=== PATIENT | female | born 2000 | race Caucasian/White ===

== ENCOUNTER → 2023-07-08 | Outpatient (CLI) | payer MEDICAID ==
--- NOTE | 2023-07-08 15:37 | Diagnostic Imaging Report ---
PROCEDURE: US right lower extremity venous. TECHNIQUE: Multiple real-time grayscale images were obtained over the right lower extremity in various projections. Additional spectral analysis and color Doppler duplex images were also obtained. INDICATION: Pain in the right leg. COMPARISON: Non available. FINDINGS: The right common femoral, femoral and popliteal veins are patent by color doppler imaging and without DVT. Visualized proximal aspects of the greater saphenous, deep femoral, posterior tibial and peroneal veins are also patent. All of the evaluated deep venous structures demonstrate normal compressibility and waveform augmentation where applicable. IMPRESSION: No right lower extremity deep venous thrombosis (DVT). Dictated by: Dictated on workstation # [id number]
== END ==
LOC: RAD 14:17
PROVIDERS: ATTEND Obstetrics & Gynecology
DX: M79.604 Pain in right leg (principal)

== ENCOUNTER → 2023-09-04 | Outpatient (CLI) | payer MEDICAID ==
--- NOTE | 2023-09-04 15:22 | Diagnostic Imaging Report ---
INDICATION: survey. TECHNIQUE: Multiple real-time grayscale images were obtained over the gravid uterus. COMPARISON: None FINDINGS: There is a single live fetus in a breech presentation. heart rate was recorded at 149 bpm. The placenta is posterior. No previa is detected. The amniotic fluid volume is 12.1 cm. The cervical length is 4.1 cm. kidneys, bladder and stomach are unremarkable. brain is unremarkable. There is a four-chamber heart. There is a three-vessel cord with normal insertion. spine is unremarkable. Maternal adnexa was not evaluated. Biometrical measurements are as follows: Biparietal 4.21 cm, age 18 weeks 6 days. Head circumference 16.84 cm, age 19 weeks 4 days. Abdominal circumference 14.56 cm, age 20 weeks 0 days. Femur length 3.05 cm, age 19 weeks 4 days. Sonographic estimate age: 19 weeks 4 days. Sonographic estimated date of delivery: 01/25/2024. Estimated Weight: 303 gm (+/- 44 gm). LMP percentile: 32%. heart rate: 149 beats per minute. number: 1 of 1. IMPRESSION: Single live IUP 19 weeks 4 days gestational age. Estimated date of confinement sonographically is 01/25/2024. Dictated by: Dictated on workstation # [id number]
== END ==
LOC: RAD 10:08
PROVIDERS: ATTEND Obstetrics & Gynecology
DX: Z36.89 Encounter for other specified antenatal screening (principal); Z3A.19 19 weeks gestation of pregnancy
CPT/HCPCS: 76805

== ENCOUNTER 2023-10-07 12:57 | Emergency (ER) | payer MEDICAID ==
[~2023-10-07] VITALS: Ht 167.7 cm; Wt 68.9 kg
[2023-10-07] MEDS ORDERED: NS IV 1000 ML 1,000 ML IV STA (13:33)
[2023-10-07 13:41] LABS: ALBUMIN 3.5 GM/DL (3.2-4.5); BASOPHILS # (AUTO) 0.1 10^3/uL (0.0-0.1); BASOPHILS % (AUTO) 1 % (0-10); EOSINOPHILS # (AUTO) 0.1 10^3/uL (0.0-0.3); EOSINOPHILS % (AUTO) 1 % (0-10); HEMATOCRIT 34 % (35-52); LYMPHOCYTES # (AUTO) 1.4 10^3/uL (1.0-4.0); LYMPHOCYTES % (AUTO) 14 % (12-44); MEAN CORPUSCULAR HEMOGLOBIN 30 pg (25-34); MEAN CORPUSCULAR HGB CONC 33 g/dL (32-36); MEAN CORPUSCULAR VOLUME 90 fL (80-99); MEAN PLATELET VOLUME 10.5 fL (9.0-12.2); MONOCYTES # (AUTO) 0.5 10^3/uL (0.0-1.0); MONOCYTES % (AUTO) 5 % (0-12); NEUTROPHILS # (AUTO) 7.7 10^3/uL (1.8-7.8); NEUTROPHILS % (AUTO) 78 % (42-75); PLATELET COUNT 241 10^3/uL (130-400); WHITE BLOOD COUNT 9.9 10^3/uL (4.3-11.0)
[2023-10-07 13:42] LABS: POTASSIUM 3.4 MMOL/L (3.6-5.0)
[2023-10-07 13:43] LABS: CALCIUM 8.4 MG/DL (8.5-10.1)
[2023-10-07 13:46] LABS: BILIRUBIN,TOTAL 0.6 MG/DL (0.1-1.0)
[2023-10-07 13:48] LABS: CREATININE SERUM 0.65 MG/DL (0.60-1.30)
[2023-10-07 13:51] LABS: MAGNESIUM 1.9 MG/DL (1.6-2.4)
[2023-10-07 14:03] LABS: CLARITY,URINE CLOUDY; COLOR,URINE YELLOW; PH,URINE 8.5 (5-9)
[2023-10-07 14:04] LABS: BACTERIA,URINE MODERATE /HPF; BILIRUBIN,URINE NEGATIVE (NEGATIVE); GLUCOSE, URINE (UA) NEGATIVE (NEGATIVE); KETONES,URINE NEGATIVE (NEGATIVE); LEUKOCYTE ESTERASE ,URINE 2+ (NEGATIVE); NITRITE,URINE NEGATIVE (NEGATIVE); PROTEIN,URINE NEGATIVE (NEGATIVE)
--- NOTE | 2023-10-07 14:06 | ED General ---
General Chief Complaint: Dizziness/Syncope Stated Complaint: 24 WEEKS | SPOTTY VISION | PASSING OUT Nursing Triage Note: PT AMB TO RM 9 WITH CC OF DIZZINESS, SPOTTED VISION, NAUSEA, AND FEELING LIKE SHE IS GOING TO PASS OUT. PT IS 24 WEEKS . HX OF ANEMIA. Source of Information: Patient Exam Limitations: No Limitations History of Present Illness Date Seen by Provider: Oct 07, 2023 Time Seen by Provider: 13:25 Initial Comments Here with report of dizziness and swatted her blurry vision that started this morning. Patient is approximately 24 weeks . She has had uncomplicated so far. Does have some vaginal discharge that seems to be physiologic and has been persistent throughout . She was started on antibiotic last week for the discharge their direction of Dr. 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 She denies chest pain, breathing problems, sore throat, runny nose, cough or other viral or infective symptoms. Denies diarrhea. She did have a bout of dizziness during her last at the end of and they thought that might be related to some anemia. She was not otherwise found to be anemic at other visits. She did try resting and drinking plenty of water and that did not change the symptoms. She still reports dizziness with eyes open or closed as well as sitting up or lying down. Timing/Duration: 4-6 Hours Severity: Moderate Associated Systoms: No Cough, No Fever/Chills; Nausea/Vomiting; No Shortness of Air, No Syncope; Weakness Allergies and Home Medications Allergies Coded Allergies: No Known Drug Allergies (Unverified , 10/07/23) Patient Home Medication List Home Medication List Reviewed: Yes Review of Systems Review of Systems Constitutional: No fever; weakness EENTM: No nose congestion, No throat pain Respiratory: No cough, No short of breath Cardiovascular: No chest pain, No palpitations Gastrointestinal: No nausea, No vomiting Genitourinary: see HPI Expected Date of Delivery: Jan 23, 2024 Musculoskeletal: no symptoms reported Skin: see HPI Psychiatric/Neurological: See HPI Past Zowgmyx-Khfwww-Pxnfph Hx Patient Social History Tobacco Use?: No Substance use?: No Alcohol Use?: No Past Medical History Surgeries: No Respiratory: No Cardiac: No Neurological: No Expected Date of Delivery: Jan 23, 2024 Gastrointestinal: No Musculoskeletal: No Family Medical History Reviewed Nursing Family Hx Physical Exam Vital Signs Vital Signs - First Documented 10/07/23 13:05 Temp 36.6 Pulse 92 B/P (MAP) 124/77 (93) Pulse Ox 100 O2 Delivery Room Air Capillary Refill : Height, Weight, BMI Height: '" Weight: lbs. oz. kg; 24.00 BMI Method: General Appearance: No Apparent Distress, WD/WN HEENT: PERRL/EOMI, TMs Normal, Pharynx Normal Neck: Non Tender, Supple Respiratory: Lungs Clear, Normal Breath Sounds Cardiovascular: Regular Rate, Rhythm, No Murmur Gastrointestinal: Non Tender, Soft, Other Back: Normal Inspection, No CVA Tenderness, No Vertebral Tenderness Extremity: Normal Range of Motion, Non Tender Neurologic/Psychiatric: Alert, Oriented x3 Skin: Normal Color, Warm/Dry Progress/Results/Core Measures Suspected Sepsis SIRS Temperature: Pulse: 92 Respiratory Rate: Laboratory Tests 10/07/23 13:15: White Blood Count 9.9 Blood Pressure 124 /77 Mean: 93 Laboratory Tests 10/07/23 13:15: Creatinine 0.65, Platelet Count 241, Total Bilirubin 0.6 Results/Orders Lab Results Laboratory Tests Test 10/07/23 13:15 10/07/23 13:44 Range/Units White Blood Count 9.9 4.3-11.0 10^3/uL Red Blood Count 3.73 L 3.80-5.11 10^6/uL Hemoglobin 11.0 L 11.5-16.0 g/dL Hematocrit 34 L 35-52 % Mean Corpuscular Volume 90 80-99 fL Mean Corpuscular Hemoglobin 30 25-34 pg Mean Corpuscular Hemoglobin Concent 33 32-36 g/dL Red Cell Distribution Width 13.1 10.0-14.5 % Platelet Count 241 130-400 10^3/uL Mean Platelet Volume 10.5 9.0-12.2 fL Immature Granulocyte % (Auto) 2 % Neutrophils (%) (Auto) 78 H 42-75 % Lymphocytes (%) (Auto) 14 12-44 % Monocytes (%) (Auto) 5 0-12 % Eosinophils (%) (Auto) 1 0-10 % Basophils (%) (Auto) 1 0-10 % Neutrophils # (Auto) 7.7 1.8-7.8 10^3/uL Lymphocytes # (Auto) 1.4 1.0-4.0 10^3/uL Monocytes # (Auto) 0.5 0.0-1.0 10^3/uL Eosinophils # (Auto) 0.1 0.0-0.3 10^3/uL Basophils # (Auto) 0.1 0.0-0.1 10^3/uL Immature Granulocyte # (Auto) 0.2 H 0.0-0.1 10^3/uL Sodium Level 136 135-145 MMOL/L Potassium Level 3.4 L 3.6-5.0 MMOL/L Chloride Level 107 98-107 MMOL/L Carbon Dioxide Level 21 21-32 MMOL/L Anion Gap 8 5-14 MMOL/L Blood Urea Nitrogen 9 7-18 MG/DL Creatinine 0.65 0.60-1.30 MG/DL Estimat Glomerular Filtration Rate 126 BUN/Creatinine Ratio 14 Glucose Level 93 70-105 MG/DL Calcium Level 8.4 L 8.5-10.1 MG/DL Corrected Calcium 8.8 8.5-10.1 MG/DL Magnesium Level 1.9 1.6-2.4 MG/DL Total Bilirubin 0.6 0.1-1.0 MG/DL Aspartate Amino Transf (AST/SGOT) 13 5-34 U/L Alanine Aminotransferase (ALT/SGPT) 6 0-55 U/L Alkaline Phosphatase 55 40-136 U/L C-Reactive Protein High Sensitivity 0.24 0.00-0.50 MG/DL Total Protein 7.0 6.4-8.2 GM/DL Albumin 3.5 3.2-4.5 GM/DL Thyroid Stimulating Hormone (TSH) 1.98 0.35-4.94 UIU/ML Urine Color YELLOW Urine Clarity CLOUDY Urine pH 8.5 5-9 Urine Specific [place] 1.020 1.016-1.022 Urine Protein NEGATIVE NEGATIVE Urine Glucose (UA) NEGATIVE NEGATIVE Urine Ketones NEGATIVE NEGATIVE Urine Nitrite NEGATIVE NEGATIVE Urine Bilirubin NEGATIVE NEGATIVE Urine Urobilinogen 0.2 < = 1.0 MG/DL Urine Leukocyte Esterase 2+ H NEGATIVE Urine RBC (Auto) NEGATIVE NEGATIVE Urine RBC RARE /HPF Urine WBC 10-25 H /HPF Urine Squamous Epithelial Cells 10-25 H /HPF Urine Crystals NONE /LPF Urine Bacteria MODERATE H /HPF Urine Casts NONE /LPF Urine Mucus NEGATIVE /LPF Urine Culture Indicated YES My Orders Orders - SIMONE PATEL MD Ekg Tracing (10/07/23 13:33) Monitor-Rhythm Ecg Trace Only (10/07/23 13:33) Cbc And Automated Diff (10/07/23 13:33) Comprehensive Metabolic Panel (10/07/23 13:33) Hs C Reactive Protein (10/07/23 13:33) Magnesium (10/07/23 13:33) Thyroid Stimulating Hormone (10/07/23 13:33) Ua Culture If Indicated (10/07/23 13:33) Ns Iv 1000 Ml (Ns Iv 1000 Ml) (10/07/23 13:33) Ed Iv/Invasive Line Start (10/07/23 13:33) Urine Culture (10/07/23 13:44) Vital Signs/I&O 10/07/23 13:05 Temp 36.6 Pulse 92 B/P (MAP) 124/77 (93) Pulse Ox 100 O2 Delivery Room Air Capillary Refill : Blood Pressure Mean: 93 Progress Note : Progress Note Seen and evaluated. IV, labs including CBC, CMP, UA, magnesium and thyroid studies ordered. Normal saline 1 L bolus and EKG ordered. Patient has gravid uterus and states that she is still feeling baby move so she is not concerned about that. Monitor patient. Differential diagnosis includes dehydration, electrolyte abnormality, UTI 1523: Labs reviewed and CBC shows slight decrease in hemoglobin but otherwise no significant abnormality. CMP is grossly normal. UA does show 15-25 whites as well as 15-25 squames. I did discuss the case with Dr. 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 We will go ahead and initiate cephalexin outpatient. Patient is currently under therapy for yeast infection. Patient is doing much better now and her dizziness and vision spots are gone. She appears much more comfortable. I did discuss all of this with her and her and both are comfortable with going home. Discharged home with return precautions. Patient and family verbalized understanding instructions and agreement with plan. ECG Initial ECG Impression Date: Oct 07, 2023 Initial ECG Impression Time: 13:48 Initial ECG Rate: 77 Initial ECG Rhythm: Normal Sinus Initial ECG Impression: Normal Initial ECG Comparisson: No Previous ECG Available Comment Sinus rhythm with normal axis. No evidence of ST elevation [place]. Interpreted by me. Departure Impression Primary Impression: Dizziness Additional Impression: UTI (urinary tract infection) Qualified Codes: N30.00 - Acute cystitis without hematuria Disposition: HOME, SELF-CARE Condition: Improved Departure-Patient Inst. Decision time for Depature: 15:25 Referrals: DENY ARCE DO (PCP/Family) Primary Care Physician FRANKLIN ROBERTS DO Patient Instructions: Dizziness, Adult ED, Urinary tract infections in adults Add. Discharge Instructions: All discharge instructions reviewed with patient and/or family. Voiced understanding. Drink plenty of fluids and try to eat a normal diet. Follow-up with Dr. Roberts for recheck and further evaluation. Take medications as directed. Return for worse pain, fever, vomiting, weakness, breathing problems or other concerns as needed. Scripts Cephalexin (Cephalexin) 500 Mg Capsule 500 MG PO BID for 5 Days, #10 CAP 0 Refills Prov: SIMONE PATEL MD 10/07/23 SIMONE PATEL MD Oct 07, 2023 14:06
[2023-10-07 14:08] LABS: RBC,URINE RARE /HPF
[2023-10-07] MEDS ORDERED: CEPH500C PO (15:24)
[2023-10-07 15:30] VITALS: BP 100/69
== END 2023-10-07 15:35 | disposition home or self-care (01) ==
LOC: EDUNIT# 12:57 → ER 12:59
DX: O23.42 Unspecified infection of urinary tract in pregnancy, second trimester (principal); N39.0 Urinary tract infection, site not specified; O26.892 Other specified pregnancy related conditions, second trimester; R42 Dizziness and giddiness; Z3A.24 24 weeks gestation of pregnancy
CPT/HCPCS: 36415; 80053; 81000; 83735; 84443; 85025; 86141; 87088; 93005; 93041

== ENCOUNTER 2023-10-11 15:13 | Outpatient (CLI) | payer MEDICAID ==
[~2023-10-11] VITALS: Ht 165.1 cm; Wt 69.5 kg
[~2023-10-11 15:13] MED LIST: CEPH500C PO
[2023-10-11 15:28] VITALS: BP 128/69
[2023-10-11] MEDS ORDERED: PNV-9 PO (15:40)
[2023-10-11 16:05] LABS: CLARITY,URINE CLEAR; COLOR,URINE YELLOW; GLUCOSE, URINE (UA) NEGATIVE (NEGATIVE); PROTEIN,URINE 1+ (NEGATIVE)
[2023-10-11 16:06] LABS: AMORPHOUS SEDIMENT,UR FEW AMOR URATES /LPF; BACTERIA,URINE FEW /HPF; BILIRUBIN,URINE NEGATIVE (NEGATIVE); KETONES,URINE NEGATIVE (NEGATIVE); LEUKOCYTE ESTERASE ,URINE TRACE (NEGATIVE); NITRITE,URINE NEGATIVE (NEGATIVE); RBC,URINE RARE /HPF
[2023-10-11] MEDS ORDERED: ONDA4TAB11 PO (16:28)
--- NOTE | 2023-10-12 09:41 | OB Triage Report ---
Standard Progress Note Progress Notes/Assess & Plan Date Seen by a Provider: Oct 11, 2023 Time Seen by a Provider: 19:00 Expected Date of Delivery: Jan 23, 2024 Gestational Age in Weeks: 25 Gestational Age in Days: 1 LMP/PATEL Comment: As above Progress/Assessment & Plan L&D Triage Note: S: Patient is a at 25 1/7 weeks presents to L&D with 5 day hx of nausea, back pain, dizziness and ringing in ears, seen in ED recently for same. Patient on Rx Keflex for UTI. No respiratory complaints, no myalgias, no fevers, no emesis, no SOB. O: VSS/AF Patient saturating 98% on RA per RN, FHTs in normal range, no evidence of contractions, therefore no cervical exam performed UA unremarkable A/P: GI viral syndrome. Patient given several options: 1) Home with reassurance 2) IV fluids and IV anti-emetics 3) Outpatient Rx for nausea (option chosen by patient) Rx called in by RN on my behalf for Zofran 4 mg, #20: 1 p.o. q6h prn nausea (1 Refill) Follow up routine OB, sooner prn. Final Diagnosis GI Viral Syndrome Third Trimester 25 weeks Not in labor COOPER ESCOBAR DO Oct 12, 2023 09:41
== END 2023-10-11 16:48 ==
LOC: WSo 15:13 → LDRP 15:14 → WSo 16:48
PROVIDERS: ATTEND Obstetrics & Gynecology
DX: O99.891 Other specified diseases and conditions complicating pregnancy (principal); R11.0 Nausea; M54.9 Dorsalgia, unspecified; H93.19 Tinnitus, unspecified ear; Z3A.25 25 weeks gestation of pregnancy
CPT/HCPCS: 81000; 87088

== ENCOUNTER 2023-10-22 10:19 | Emergency (ER) | payer MEDICAID ==
[~2023-10-22] VITALS: Ht 167.7 cm; Wt 70.7 kg
[~2023-10-22 10:19] MED LIST changes: +ONDA4TAB11 PO; +PNV-9 PO
[2023-10-22] MEDS ORDERED: NS IV 1000 ML 1,000 ML IV STA (10:48)
[2023-10-22 11:14] LABS: BASOPHILS % (AUTO) 0 % (0-10); EOSINOPHILS % (AUTO) 0 % (0-10); HEMATOCRIT 33 % (35-52); HEMOGLOBIN 10.6 g/dL (11.5-16.0); LYMPHOCYTES # (AUTO) 1.6 10^3/uL (1.0-4.0); LYMPHOCYTES % (AUTO) 16 % (12-44); MEAN CORPUSCULAR HEMOGLOBIN 29 pg (25-34); MEAN CORPUSCULAR HGB CONC 32 g/dL (32-36); MEAN CORPUSCULAR VOLUME 90 fL (80-99); MEAN PLATELET VOLUME 10.5 fL (9.0-12.2); MONOCYTES # (AUTO) 0.5 10^3/uL (0.0-1.0); MONOCYTES % (AUTO) 5 % (0-12); NEUTROPHILS # (AUTO) 7.6 10^3/uL (1.8-7.8); NEUTROPHILS % (AUTO) 77 % (42-75); PLATELET COUNT 214 10^3/uL (130-400)
[2023-10-22 11:22] LABS: ALBUMIN 3.7 GM/DL (3.2-4.5); POTASSIUM 3.8 MMOL/L (3.6-5.0)
--- NOTE | 2023-10-22 11:23 | ED General ---
General Chief Complaint: Dizziness/Syncope Stated Complaint: PASSING OUT | DIZZY | 26 WEEKS PREG Nursing Triage Note: PT AMB TO RM 5 WITH COMPLAINT DIZZY SPELLS AND PASSING OUT. STATES SHE PASSED OUT TODAY WHILE SITTING IN A CHAIR. PT IS [address] ARELLANO. COMPLAINS OF THROBBING HEADACHE. Source of Information: Patient Exam Limitations: No Limitations History of Present Illness Date Seen by Provider: Oct 22, 2023 Time Seen by Provider: 10:49 Initial Comments Here with report of dizzy episode today and passed out. States that she was s itting in a chair when this happened. She does report eating breakfast this morning including a waffle with peanut butter and a banana. She has had multiple episodes of this dizziness throughout the and even had it before . This seems to be worse now. This is her third visit since 10/07/2023 for the same. She follows with Dr. Arellano. She does have anxiety related to the concerns. Denies vaginal bleeding. She has physiological discharge of that is a little less currently. Denies injury, vomiting or diarrhea currently. Denies dysuria. is with her at bedside. He was concerned about her diet and also concerns of low blood sugar. This is her second and she is approximately 26 weeks gestation currently. Timing/Duration: Changing Over Time, Other (weeks) Severity: Mild, Moderate Associated Systoms: No Chest Pain, No Cough, No Fever/Chills, No Nausea/Vomiting, No Shortness of Air; Syncope, Other (Dizziness) Allergies and Home Medications Allergies Coded Allergies: tree nut (Verified Allergy, Unknown, 10/11/23) Patient Home Medication List Home Medication List Reviewed: Yes Cephalexin (Cephalexin) 500 Mg Capsule, 500 MG PO BID Prescribed by: SIMONE PATEL on 10/07/23 1524 Ondansetron (Ondansetron Odt) 4 Mg Tab.rapdis, 4 MG PO Q6H PRN for NAUSEA/VOMIT ING-1ST LINE Prescribed by: ELIZABETH TREVIZO on 10/11/23 1633 Pnv 119/Iron Fum/Folic Acid ( 19 Tablet) 29 Mg Iron-1 Mg Tablet, 1 EACH PO DAILY, (Reported) Entered as Reported by: ELIZABETH TREVIZO on 10/11/23 1540 Review of Systems Review of Systems Constitutional: see HPI; No chills; dizziness; No fever EENTM: other (Occasional numbness to the right side of face and decreased hearing from right ear. That is not currently happening.) Respiratory: No cough, No short of breath Cardiovascular: No chest pain, No palpitations, No syncope Gastrointestinal: No abdominal pain, No nausea, No vomiting Genitourinary: no symptoms reported : Yes Musculoskeletal: no symptoms reported Psychiatric/Neurological: See HPI Past Fsyoopi-Tadwgr-Zgqrel Hx Patient Social History Tobacco Use?: No Use of E-Cig and/or Vaping dev: No Substance use?: No Alcohol Use?: No Pt feels they are or have been: No Past Medical History Surgeries: No Respiratory: No Cardiac: No Neurological: No : Yes Expected Date of Delivery: Jan 25, 2024 Gastrointestinal: No Musculoskeletal: No Family Medical History Reviewed Nursing Family Hx Physical Exam Vital Signs Vital Signs - First Documented 10/22/23 10:25 Temp 36.6 Pulse 89 Resp 20 B/P (MAP) 112/80 (91) Pulse Ox 100 O2 Delivery Room Air Capillary Refill : Less Than 3 Seconds Height, Weight, BMI Height: '" Weight: lbs. oz. kg; 25.00 BMI Method: General Appearance: Anxious, Other (Tearful but answers questions appropriately and is in otherwise no distress.) HEENT: PERRL/EOMI Neck: Non Tender, Supple Respiratory: Lungs Clear, Normal Breath Sounds Cardiovascular: Regular Rate, Rhythm, No Murmur Gastrointestinal: Non Tender, Soft Neurologic/Psychiatric: Alert, Oriented x3 Skin: Normal Color, Warm/Dry Progress/Results/Core Measures Suspected Sepsis SIRS Temperature: Pulse: 89 Respiratory Rate: 20 Laboratory Tests 10/22/23 11:08: White Blood Count 10.0 Blood Pressure 112 /80 Mean: 91 Laboratory Tests 10/22/23 11:08: Creatinine 0.66, Platelet Count 214, Total Bilirubin 0.5 Results/Orders Lab Results Laboratory Tests Test 10/22/23 10:47 10/22/23 10:48 10/22/23 11:08 Range/Units Glucometer 77 70-110 MG/DL Urine Color YELLOW Urine Clarity CLEAR Urine pH 7.0 5-9 Urine Specific [place] 1.025 H 1.016-1.022 Urine Protein NEGATIVE NEGATIVE Urine Glucose (UA) NEGATIVE NEGATIVE Urine Ketones NEGATIVE NEGATIVE Urine Nitrite NEGATIVE NEGATIVE Urine Bilirubin NEGATIVE NEGATIVE Urine Urobilinogen 0.2 < = 1.0 MG/DL Urine Leukocyte Esterase TRACE H NEGATIVE Urine RBC (Auto) NEGATIVE NEGATIVE Urine RBC NONE /HPF Urine WBC NONE /HPF Urine Squamous Epithelial Cells 2-5 /HPF Urine Crystals NONE /LPF Urine Bacteria NEGATIVE /HPF Urine Casts NONE /LPF Urine Mucus NEGATIVE /LPF Urine Culture Indicated NO White Blood Count 10.0 4.3-11.0 10^3/uL Red Blood Count 3.67 L 3.80-5.11 10^6/uL Hemoglobin 10.6 L 11.5-16.0 g/dL Hematocrit 33 L 35-52 % Mean Corpuscular Volume 90 80-99 fL Mean Corpuscular Hemoglobin 29 25-34 pg Mean Corpuscular Hemoglobin Concent 32 32-36 g/dL Red Cell Distribution Width 12.7 10.0-14.5 % Platelet Count 214 130-400 10^3/uL Mean Platelet Volume 10.5 9.0-12.2 fL Immature Granulocyte % (Auto) 2 % Neutrophils (%) (Auto) 77 H 42-75 % Lymphocytes (%) (Auto) 16 12-44 % Monocytes (%) (Auto) 5 0-12 % Eosinophils (%) (Auto) 0 0-10 % Basophils (%) (Auto) 0 0-10 % Neutrophils # (Auto) 7.6 1.8-7.8 10^3/uL Lymphocytes # (Auto) 1.6 1.0-4.0 10^3/uL Monocytes # (Auto) 0.5 0.0-1.0 10^3/uL Eosinophils # (Auto) 0.0 0.0-0.3 10^3/uL Basophils # (Auto) 0.0 0.0-0.1 10^3/uL Immature Granulocyte # (Auto) 0.2 H 0.0-0.1 10^3/uL Sodium Level 135 135-145 MMOL/L Potassium Level 3.8 3.6-5.0 MMOL/L Chloride Level 105 98-107 MMOL/L Carbon Dioxide Level 23 21-32 MMOL/L Anion Gap 7 5-14 MMOL/L Blood Urea Nitrogen 7 7-18 MG/DL Creatinine 0.66 0.60-1.30 MG/DL Estimat Glomerular Filtration Rate 126 BUN/Creatinine Ratio 11 Glucose Level 80 70-105 MG/DL Calcium Level 9.3 8.5-10.1 MG/DL Corrected Calcium 9.5 8.5-10.1 MG/DL Total Bilirubin 0.5 0.1-1.0 MG/DL Aspartate Amino Transf (AST/SGOT) 16 5-34 U/L Alanine Aminotransferase (ALT/SGPT) 11 0-55 U/L Alkaline Phosphatase 51 40-136 U/L Total Protein 7.3 6.4-8.2 GM/DL Albumin 3.7 3.2-4.5 GM/DL My Orders Orders - SIMONE PATEL MD Ekg Tracing (10/22/23 10:42) Cbc And Automated Diff (10/22/23 10:48) Comprehensive Metabolic Panel (10/22/23 10:48) Ua Culture If Indicated (10/22/23 10:48) Ns Iv 1000 Ml (Ns Iv 1000 Ml) (10/22/23 10:48) Ed Iv/Invasive Line Start (10/22/23 10:48) Accucheck Stat ONCE (10/22/23 10:48) Us Limited [id number] (10/22/23 11:04) Vital Signs/I&O 10/22/23 10:25 Temp 36.6 Pulse 89 Resp 20 B/P (MAP) 112/80 (91) Pulse Ox 100 O2 Delivery Room Air Capillary Refill : Less Than 3 Seconds Blood Pressure Mean: 91 Point of Care Testing Finger Stick Blood Glucose: 77 Blood Glucose Action Taken: RN NOTIFIED Progress Note : Progress Note Seen and evaluated. IV, labs including CBC and CMP as well as UA ordered. EKG ordered. Normal saline 1 L bolus. We will go ahead and get formal did ultrasound of baby while she is here. This was discussed with patient and brandon nevarez who agree. I did review previous history including visit on 10/07/2023. I did check thyroid studies at that time and they were normal so I will not repeat that today. Monitor patient. Differential diagnosis includes dehydration, hypoglycemia, electrolyte abnormality, 1215: UA grossly normal but slightly concentrated with specific gravity elevated. CBC grossly normal with slightly low hemoglobin consistent with previous. Chemistries are completely normal. Overall she is feeling better af ter fluids. Ultrasound pelvis limited OB evaluation shows gestational age at 26-5/7 with heart tone of 155 and positive movement on my interpretation. Wet read reports same and pending final report. I did discuss all the findings with the patient and family. We did discuss diet and hydration and also consideration for keeping a snack with her in case she starts to feel a little dizzy or weak in case her blood sugars going lower. She will continue to work on appropriate hydration and monitor urine color as well. Discharged home with return precautions. Patient verbalized understanding of instructions and agreement with plan. ECG Initial ECG Impression Date: Oct 22, 2023 Initial ECG Impression Time: 10:43 Initial ECG Rate: 81 Initial ECG Rhythm: Normal Sinus Initial ECG Impression: Normal Comment Sinus rhythm with normal axis. No evidence of ST elevation OR. Interpreted by me. Diagnostic Imaging Diagonstic Imaging: Ultrasound Plain Films/CT/US/NM/MRI: pelvis Departure Impression Primary Impression: Dizziness Additional Impressions: Dehydration Qualified Codes: Z3A.26 - 26 weeks gestation of Disposition: 01 HOME, SELF-CARE Condition: Improved Departure-Patient Inst. Decision time for Depature: 12:20 Referrals: DENY ARCE DO (PCP) Primary Care Physician FRANKLIN ARELLANO DO (Family) Primary Care Physician Patient Instructions: Dizziness, Adult ED, Dehydration, Adult ED, - The Seventh Month Add. Discharge Instructions: All discharge instructions reviewed with patient and/or family. Voiced unde rstanding. Continue to drink an appropriate amount of fluids to keep your urine light yellow. Try to eat a normal diet and you should consider carrying snacks with you in case you begin to feel a little dizzy. If this dizziness does occur, you should drink fluids as discussed as well as eat a snack and see if that helps. Follow-up with Dr. Arellano for your scheduled OB visits. Return for weakness, vomiting, palpitations, chest pain or other concerns as needed. Copy Copies To 1: FRANKLIN ARELLANO TIMOTHY D MD Oct 22, 2023 11:23
[2023-10-22 11:24] LABS: CALCIUM 9.3 MG/DL (8.5-10.1)
[2023-10-22 11:24] LABS: BACTERIA,URINE NEGATIVE /HPF; BILIRUBIN,URINE NEGATIVE (NEGATIVE); CLARITY,URINE CLEAR; COLOR,URINE YELLOW; GLUCOSE, URINE (UA) NEGATIVE (NEGATIVE); KETONES,URINE NEGATIVE (NEGATIVE); LEUKOCYTE ESTERASE ,URINE TRACE (NEGATIVE); NITRITE,URINE NEGATIVE (NEGATIVE); PROTEIN,URINE NEGATIVE (NEGATIVE)
[2023-10-22 11:25] LABS: TOTAL PROTEIN 7.3 GM/DL (6.4-8.2)
[2023-10-22 11:27] LABS: BILIRUBIN,TOTAL 0.5 MG/DL (0.1-1.0)
[2023-10-22 11:28] LABS: CREATININE SERUM 0.66 MG/DL (0.60-1.30)
[2023-10-22 12:30] VITALS: BP 112/80
--- NOTE | 2023-10-22 12:30 | Diagnostic Imaging Report ---
US LIMITED [id number] INDICATION: Dizziness and weakness during COMPARISON: 09/04/2023 TECHNIQUE: Limited transabdominal sonographic imaging of the gravid uterus. FINDINGS: There is a single live intrauterine in a breech presentation. heart rate is detected at 155 bpm. The DAMIEN is normal at 17.2 cm. Placenta is posteriorly positioned and there is no previa. anatomy survey is not performed on this examination. Maternal adnexa are also not evaluated. The cervix measures approximately 3.6 cm in length. measurements were also not obtained on this limited examination. IMPRESSION: Single live intrauterine . Dictated by: Dictated on workstation # [id number]
== END 2023-10-22 12:30 | disposition home or self-care (01) ==
LOC: EDUNIT# 10:19 → ER 10:20
DX: O99.282 Endocrine, nutritional and metabolic diseases complicating pregnancy, second trimester (principal); E86.0 Dehydration; Z3A.26 26 weeks gestation of pregnancy
CPT/HCPCS: 36415; 76815; 80053; 81000; 82947; 85025; 93005